=== PATIENT | male | born 1980 | race Caucasian/White ===

== ENCOUNTER 2016-04-22 07:44 | Observation (INO) ==
[2016-04-22] MEDS ORDERED: 0.9 % Sodium Chloride 1,000 ML IVC ONE (07:57)
[2016-04-22] MEDS ORDERED: *HR* HYDROmorphone (PF) 1 MG/ML SYRINGE IVP ONE ×2 (07:57→09:08)
[2016-04-22] MEDS ORDERED: Ondansetron 4 MG/2 ML VIAL IVP ONE (07:57)
--- NOTE | 2016-04-22 08:00 | Emergency Department Note ---
Disposition Clinical Impression: Cholecystitis Disposition: Admitted As Inpatient Condition: Fair Referrals: Ana Garcia, [employer] [Primary Care Provider] - Forms: Work/School Release, ED Satisfaction Letter Time of Disposition: 09:33 Abdominal Pain HPI - General Chief Complaint: ED Abdominal Pain Stated Complaint: RUQ pain Gallbladder issues Time Seen by Provider: 04/22/16 07:57 Source: patient Mode of arrival: ambulatory Limitations: no limitations Nursing Notes Reviewed: Yes Vital Signs Reviewed: Yes - History of Present Illness HPI Narrative: 35-year-old comes in with right upper quadrant pain began about 4 AM. Patient has a known gallstone that was diagnosed 4-5 months ago he's had no surgical follow-up. Patient a hamburger last night about 5:00. He is diaphoretic complaining of right upper quadrant pain on arrival. Pt Subjective Complaint: abdominal pain Onset (ago): hour(s) Consistency: constant Location: RUQ Pain Severity: severe Pain Scale: 10 Quality: aching, sharp Radiation: back Migration to: no migration Improves with: nothing Worsens with: nothing - Related Data Previous Rx's Medication Instructions Recorded Hydrocodone/Acetaminophen [Cobb 1 - 2 each PO Q6H PRN #15 tablet 07/26/15 5-325 Tablet] Ondansetron ODT [Zofran ODT] 4 mg SL Q6HR PRN #15 tab.rapdis 07/26/15 Allergies Allergy/AdvReac Type Severity Reaction Status Date / Time No Known Allergies Allergy Verified 07/26/15 03:22 Constitutional: Denies: fever, chills, weakness, weight change Eyes: Denies: eye pain, eye discharge, vision change ENT ED: Denies: ear pain, throat pain, dental pain, hearing loss, epistaxis, congestion, dysphagia Cardiovascular: Denies: chest pain, palpitations, dyspnea on exertion, edema, syncope Respiratory: Denies: cough, dyspnea, wheezes, hemoptysis, stridor Gastrointestinal: Reports: abdominal pain, nausea. Denies: vomiting, diarrhea, constipation, hematemesis, melena, hematochezia Genitourinary: Denies: urgency, dysuria, frequency, hematuria Musculoskeletal: Denies: back pain, neck pain, arthralgia, myalgia Integumentary: Denies: rash, abrasion, lesions Neurological: Denies: headache, weakness, numbness, paresthesias, confusion, abnormal gait, vertigo Psychiatric: Denies: anxiety, depression, suicidal thoughts, homicidal thoughts , auditory hallucinations, visual hallucinations Endocrine: Denies: fatigue Hematological/Lymphatic: Denies: easy bleeding, easy bruising Allergic/Immunologic: Denies: facial swelling, urticaria Abdominal Pain PMH - Past Medical History Medical history: Reports: GERD Male Surgical History: Reports: no surgical history Psychiatric history: Reports: no psych history - Social History Smoking status: Never smoker Alcohol use: Reports: heavy Drug use: Reports: none Physical Exam - General Limitations: no limitations General appearance: alert, in no apparent distress - Head Head exam: atraumatic, normocephalic, normal inspection - Eye Eye exam: Present: normal appearance, PERRL, EOMI - ENT ENT exam: normal exam, normal oropharynx, mucous membranes moist - Neck Neck exam: Present: normal inspection, full ROM, trachea midline - Chest Chest inspection: Present: normal inspection, symmetric chest wall rise - Respiratory Respiratory exam: Present: normal lung sounds bilaterally - Cardiovascular Cardiovascular exam: Present: regular rate, normal rhythm, normal heart sounds - Abdominal Exam Abdominal exam: Present: soft, tenderness. Absent: distention, guarding, rebound, rigidity Abdominal tenderness: Present: RUQ - Extremities Exam Extremities exam: Present: normal inspection, full ROM. Absent: tenderness, pedal edema - Expanded Lower Extremity Exam Neurovascular/Tendon exam: Absent: motor deficit, sensory deficit, tendon deficit Gait: observed and normal - Back Exam Back exam: Present: normal inspection, full ROM. Absent: tenderness - Neurological Exam Neurological exam: Present: alert, oriented X3 - Psychiatric Psychiatric exam: Present: normal affect, normal mood - Skin Skin exam: Present: warm, dry, intact, normal color Course - Consultations Consultation #1: I discussed the case with Dr. Henry, admit. Time: 09:31 Vital Signs Temperature 98.0 F 04/22/16 07:47 Pulse Rate 80 04/22/16 07:47 Respiratory Rate 20 04/22/16 07:47 Blood Pressure 166/95 04/22/16 07:47 O2 Sat by Pulse Oximetry 96 04/22/16 07:47 Temperature 98.0 F 04/22/16 07:47 Pulse Rate 64 04/22/16 09:08 Respiratory Rate 18 04/22/16 09:08 Blood Pressure 166/95 04/22/16 07:47 O2 Sat by Pulse Oximetry 94 L 04/22/16 09:08 Oxygen Delivery Oxygen Delivery Room Air Abdominal Pain - Lab Data Lab results reviewed: Yes I reviewed the patient's lab results. Result diagrams: 04/22/16 08:15 04/22/16 08:15 Lab Results 04/22/16 04/22/16 04/22/16 Range/Units 08:11 08:15 08:15 WBC 12.8 H (4.3-11.1) K/mcL RBC 4.99 (4.19-5.50) M/mcL Hgb 15.6 (12.9-16.9) g/dL Hct 45.2 (37.5-50.1) % MCV 90.6 (83.0-100.0) fL MCH 31.3 (28.0-33.3) pg MCHC 34.5 (31.6-35.5) g/dL RDW 11.9 (11.5-14.5) % Plt Count 219 (140-400) K/mcL MPV 9.4 (9.4-12.4) fL Immature Gran % 0.3 (0-4) % Seg Neutrophils % 73.5 % Lymphocytes % 18.8 % Monocytes % 5.4 % Eosinophils % 1.6 % Basophils % 0.4 % Neutrophils # 9.4 H (1.6-8.9) K/mcL Lymphocytes # 2.4 (0.6-4.6) K/mcL Monocytes # 0.7 (0.0-1.3) K/mcL Eosinophils # 0.2 (0.0-0.6) K/mcL Basophils # 0.1 (0.0-0.2) K/mcL Sodium 141 (136-145) mEq/L Potassium 3.8 (3.5-4.5) mEq/L Chloride 107 (98-109) mEq/L Carbon Dioxide 24 (19-29) mEq/L BUN 13 (8-26) mg/dL Creatinine 1.50 H (0.72-1.25) mg/dL Est GFR ( Amer) > 60 (> 60) Est GFR (Non-Af Amer) 53 L (> 60) BUN/Creatinine Ratio 9 (6-26) Glucose 119 H (70-99) mg/dL Calculated Osmolality 293 (280-300) Calcium 10.0 (8.6-10.8) mg/dL Total Bilirubin 0.4 (0.2-1.2) mg/dL Direct Bilirubin 0.1 (0.0-0.5) mg/dL Indirect Bilirubin 0.3 (0.0-1.2) mg/dL AST 24 (5-34) Units/L ALT 30 (0-55) Units/L Alkaline Phosphatase 116 (38-126) Units/L Troponin I (0-0.03) ng/mL Serum Total Protein 7.3 (6.0-8.3) g/dL Albumin 3.8 (3.5-5.0) g/dL Globulin 3.5 (2.4-3.5) g/dL Albumin/Globulin Ratio 1.1 (1.1-2.2) Amylase 42 (25-125) Units/L Lipase 24 (8-78) Units/L Urine Color Yellow (Yellow) Urine Clarity Clear (Clear) Urine pH 5.5 (5.0-8.0) pH Units Ur Specific [place] 1.027 H (1.010-1.025) Urine Protein Negative (Neg-Trace) mg/dL Urine Glucose (UA) Normal (Normal) mg/dL Urine Ketones Negative (Negative) mg/dL Urine Blood Negative (Negative) Urine Nitrite Negative (Negative) Urine Bilirubin Negative (Negative) Urine Urobilinogen Normal (Normal) mg/dL Ur Leukocyte Esterase Negative (Negative) Ur Culture Indicated? NO (NO) 04/22/16 Range/Units 08:15 WBC (4.3-11.1) K/mcL RBC (4.19-5.50) M/mcL Hgb (12.9-16.9) g/dL Hct (37.5-50.1) % MCV (83.0-100.0) fL MCH (28.0-33.3) pg MCHC (31.6-35.5) g/dL RDW (11.5-14.5) % Plt Count (140-400) K/mcL MPV (9.4-12.4) fL Immature Gran % (0-4) % Seg Neutrophils % % Lymphocytes % % Monocytes % % Eosinophils % % Basophils % % Neutrophils # (1.6-8.9) K/mcL Lymphocytes # (0.6-4.6) K/mcL Monocytes # (0.0-1.3) K/mcL Eosinophils # (0.0-0.6) K/mcL Basophils # (0.0-0.2) K/mcL Sodium (136-145) mEq/L Potassium (3.5-4.5) mEq/L Chloride (98-109) mEq/L Carbon Dioxide (19-29) mEq/L BUN (8-26) mg/dL Creatinine (0.72-1.25) mg/dL Est GFR ( Amer) (> 60) Est GFR (Non-Af Amer) (> 60) BUN/Creatinine Ratio (6-26) Glucose (70-99) mg/dL Calculated Osmolality (280-300) Calcium (8.6-10.8) mg/dL Total Bilirubin (0.2-1.2) mg/dL Direct Bilirubin (0.0-0.5) mg/dL Indirect Bilirubin (0.0-1.2) mg/dL AST (5-34) Units/L ALT (0-55) Units/L Alkaline Phosphatase (38-126) Units/L Troponin I 0.01 (0-0.03) ng/mL Serum Total Protein (6.0-8.3) g/dL Albumin (3.5-5.0) g/dL Globulin (2.4-3.5) g/dL Albumin/Globulin Ratio (1.1-2.2) Amylase (25-125) Units/L Lipase (8-78) Units/L Urine Color (Yellow) Urine Clarity (Clear) Urine pH (5.0-8.0) pH Units Ur Specific [place] (1.010-1.025) Urine Protein (Neg-Trace) mg/dL Urine Glucose (UA) (Normal) mg/dL Urine Ketones (Negative) mg/dL Urine Blood (Negative) Urine Nitrite (Negative) Urine Bilirubin (Negative) Urine Urobilinogen (Normal) mg/dL Ur Leukocyte Esterase (Negative) Ur Culture Indicated? (NO) - Radiology Data Radiology results reviewed: Yes I reviewed the patient's radiology results. Gallbladder Ultrasound 04/22/16 07:58 IMPRESSION: Gallbladder sludge and small gallbladder polyp versus adherent calculus. Mild gallbladder wall thickening is also seen with prominence of the common bile duct. Developing cholecystitis is a consideration the appropriate clinical setting. If warranted, HIDA scan could be performed for further assessment. D/ / Bijan Cordon MD / Bijan Cordon MD Interpreting Provider: Bijan Cordon MD
[2016-04-22 08:20] LABS: Bilirubin,Urine Negative (Negative); Blood,Urine Negative (Negative); Clarity,Urine Clear (Clear); Color,Urine Yellow (Yellow); Glucose,Urine (UA) Normal (Normal); Ketones,Urine Negative (Negative); Leukocyte Esterase,Urine Negative (Negative); Nitrite,Urine Negative (Negative); PH,Urine 5.5 pH Units (5.0-8.0); Protein,Urine Negative (Neg-Trace); Specific Gravity,Urine 1.027 (1.010-1.025); Urobilinogen,Urine Normal (Normal)
[2016-04-22 08:25] LABS: Basophils # 0.1 K/mcL (0.0-0.2); Basophils % 0.4 %; Eosinophils # 0.2 K/mcL (0.0-0.6); Eosinophils % 1.6 %; Hematocrit 45.2 % (37.5-50.1); Hemoglobin 15.6 g/dL (12.9-16.9); Immature Granulocytes % 0.3 % (0-4); Lymphocytes # 2.4 K/mcL (0.6-4.6); Lymphocytes % 18.8 %; Mean Corpuscular HGB Conc 34.5 g/dL (31.6-35.5); Mean Corpuscular Hemoglobin 31.3 pg (28.0-33.3); Mean Corpuscular Volume 90.6 fL (83.0-100.0); Mean Platelet Volume 9.4 fL (9.4-12.4); Monocytes # 0.7 K/mcL (0.0-1.3); Monocytes % 5.4 %; Neutrophils # 9.4 K/mcL (1.6-8.9); Platelet Count 219 K/mcL (140-400); Red Blood Count 4.99 M/mcL (4.19-5.50); Red Cell Distribution Width 11.9 % (11.5-14.5); Segmented Neutrophils % 73.5 %
[2016-04-22 08:36] LABS: Alanine Aminotransferase 30 Units/L (0-55); Albumin 3.8 g/dL (3.5-5.0); Albumin/Globulin Ratio 1.1 (1.1-2.2); Alkaline Phosphatase 116 Units/L (38-126); Amylase 42 Units/L (25-125); Aspartate Amino Transferase 24 Units/L (5-34); BUN/Creatinine Ratio 9 (6-26); Bilirubin,Direct 0.1 mg/dL (0.0-0.5); Bilirubin,Indirect 0.3 mg/dL (0.0-1.2); Bilirubin,Total 0.4 mg/dL (0.2-1.2); Blood Urea Nitrogen 13 mg/dL (8-26); Carbon Dioxide 24 mEq/L (19-29); Chloride 107 mEq/L (98-109); Globulin 3.5 g/dL (2.4-3.5); Glucose 119 mg/dL (70-99); Lipase 24 Units/L (8-78); Osmolality,Calculated 293 (280-300); Potassium 3.8 mEq/L (3.5-4.5); Sodium 141 mEq/L (136-145); Total Protein 7.3 g/dL (6.0-8.3); eGFR For African Americans > 60 (> 60); eGFR For Non-African Americans 53 (> 60)
[2016-04-22] MEDS ORDERED: Piperacillin/Tazobactam 3.375 GM in D5% in Water (Mini-Bag+) 100 ML IVPB ONE (09:34)
--- NOTE | 2016-04-22 10:25 | General Surg History&Physical ---
<Zarina Medina - Last Filed: 04/22/16 11:21> Date of Encounter: 04/22/16 Time of Encounter: 10:21 Assessment and Plan (1) Cholecystitis Current Visit: Yes Status: Acute The assessment and plan as outlined above was discussed with the patient and/or family members who expressed understanding and agreement. All questions were answered. laparascopic cholecystectomy today NPO IVF pain control supportive care (2) DVT prophylaxis Current Visit: Yes Status: Acute heparin 5,000 units subcutaneous BID History of Present Illness Chief complaint: RUQ pain HPI: Mr. Miranda is a 35 year old male with RUQ pain that began last night. The pain is sharp, severe and radiates to his back. He also has pressure in his epigastrium. He had some nausea without emesis. He has had 2 episodes of similar pain, the most recent 5-6 months ago and previously been diagnosed with a gallstone in the ER during an acute attack of pain. Gallbladder ultrasound shows gallbladder sludge and small gallbladder polyp versus adherent calculus. Mild gallbladder wall thickening is also seen with prominence of the common bile duct. Past Med Surg Social Fam HX - Past Medical History Attestation: Yes The following information was validated with the patient. Source: patient Medical history: GERD Psychiatric history: no psych history - Past Surgical History Surgical History: no surgical history - Social History Smoking Status: Never smoker Smokeless Tobacco Status: Yes (one can a day) Alcohol use: heavy (4-5 small cans of beer daily) Drug use: none Occupational status: employed Current living situation: Home Activity Level: Independent ambulation Medications and Allergies Omeprazole [PriLOSEC] 40 mg PO DAILY 04/22/16 [History] Allergies No Known Allergies Allergy (Verified 07/26/15 03:22) Review of Systems All systems PM: A 10-system review of systems was performed and is negative for pertinent findings except as documented above in the HPI. - Constitutional anorexia, no chills, no fatigue, no fever(s), no increased appetite, no malaise - EENT Nose, mouth and throat: no mouth pain, no sore throat - Cardiovascular diaphoresis, no chest pain - Respiratory no cough, no dyspnea - Gastrointestinal bloating, heartburn (chronic), nausea, no change in bowel habits, no constipation, no diarrhea, no vomiting - Genitourinary no dysuria, no urinary frequency - Musculoskeletal no arthralgias, no myalgias General Surgery Exam Initial Vital Signs Temp Pulse Resp BP Pulse Ox 98.0 F 80 20 166/95 96 04/22/16 07:47 04/22/16 07:47 04/22/16 07:47 04/22/16 07:47 04/22/16 07:47 - General physical appearance well developed, well nourished, no distress - Eyes PERRL, normal ocular movement - ENT normal mucosa, atraumatic, normocephalic - Neck trachea midline - Respiratory normal respiratory effort, clear to auscultation - Cardiovascular Cardiovascular exam: Present: RRR - Abdomen Abdomen general surgery: Present: bowel sounds present, soft, tender Abdominal Tenderness: Present: RUQ - Integumentary Integumentary general surgery: Present: warm and dry - Neurologic Present: CN 2-12 grossly intact - Musculoskeletal Present: normal posture - Psychiatric Psychiatric general surgery: Present: A&Ox3, speech is normal, memory intact Results - Labs 04/22/16 08:15 04/22/16 08:15 Abnormal lab results WBC 12.8 K/mcL (4.3-11.1) H 04/22/16 08:15 Neutrophils # 9.4 K/mcL (1.6-8.9) H 04/22/16 08:15 Creatinine 1.50 mg/dL (0.72-1.25) H 04/22/16 08:15 Est GFR (Non-Af Amer) 53 (> 60) L 04/22/16 08:15 Glucose 119 mg/dL (70-99) H 04/22/16 08:15 Ur Specific [place] 1.027 (1.010-1.025) H 04/22/16 08:11 All other labs normal. <ElaineHarley T - Last Filed: 04/22/16 21:31> History of Present Illness HPI: Mr. Miranda is a 35 year old male Review of Systems All systems PM: A 10-system review of systems was performed and is negative for pertinent findings except as documented above in the HPI. General Surgery Exam Initial Vital Signs Temp Pulse Resp BP Pulse Ox 98.0 F 80 20 166/95 96 04/22/16 07:47 04/22/16 07:47 04/22/16 07:47 04/22/16 07:47 04/22/16 07:47 Results - Labs 04/22/16 08:15 04/22/16 08:15 Abnormal lab results WBC 12.8 K/mcL (4.3-11.1) H 04/22/16 08:15 Neutrophils # 9.4 K/mcL (1.6-8.9) H 04/22/16 08:15 Creatinine 1.50 mg/dL (0.72-1.25) H 04/22/16 08:15 Est GFR (Non-Af Amer) 53 (> 60) L 04/22/16 08:15 Glucose 119 mg/dL (70-99) H 04/22/16 08:15 Ur Specific [place] 1.027 (1.010-1.025) H 04/22/16 08:11 All other labs normal. - Attending Attestation I examined this patient and my medical decision-making was reviewed with the STOCK SHAPER/PA/Advanced Practice Nurse/Resident Physician. I agree with the documented findings, disposition and treatment plan as described except to the extent set forth below. Harley Henry MD FACS
[2016-04-22] MEDS ORDERED: Ondansetron 4 MG/2 ML VIAL IVP PRN ×3 (10:33→16:33)
[2016-04-22] MEDS ORDERED: *HR* HYDROmorphone (PF) 1 MG/ML SYRINGE IVP PRN ×3 (10:33→14:27)
--- NOTE | 2016-04-22 10:36 | Anesthesia Evaluation PreOp ---
Date of Encounter: 04/22/16 Time of Encounter: 10:34 - Past History Planned Operation: Lap [place] Cardiac History: Denies any Significant Hx Pulmonary History: Denies Any Significant HX CREDIT AND COLLECTIONS ANALYST History: Denies Any Significant HX Other Medical History: Denies Any Significant HX, GERD (maintained on Omeprazole ) Anesthesia History: Past Anesthesia (No prior GA), MH (NO FamHx of MH) Alcohol Use: heavy (4-5 small cans of beer daily) Drug use: none Medications and Allergies Omeprazole [PriLOSEC] 40 mg PO DAILY 04/22/16 [History] Allergies No Known Allergies Allergy (Verified 07/26/15 03:22) - Meds/Allergy Pre-op Review Medications Reviewed: Yes Allergies Reviewed: Yes Beta Blockers on Current Med List: No Anesthesia Results - Labs 04/22/16 08:15 04/22/16 08:15 Laboratory Tests 04/22/16 04/22/16 08:15 08:15 WBC 12.8 H Hgb 15.6 Hct 45.2 Plt Count 219 Sodium 141 Potassium 3.8 Chloride 107 Carbon Dioxide 24 BUN 13 Creatinine 1.50 H Est GFR ( Amer) > 60 Est GFR (Non-Af Amer) 53 L Laboratory Results Impressions Gallbladder Ultrasound 04/22/16 07:58 IMPRESSION: Gallbladder sludge and small gallbladder polyp versus adherent calculus. Mild gallbladder wall thickening is also seen with prominence of the common bile duct. Developing cholecystitis is a consideration the appropriate clinical setting. If warranted, HIDA scan could be performed for further assessment. D/ / Bijan Cordon MD / Bijan Cordon MD Interpreting Provider: Bijan Cordon MD Anesthesia Exam Short CBC 04/22/16 Range/Units 08:15 WBC 12.8 H (4.3-11.1) K/mcL Hgb 15.6 (12.9-16.9) g/dL Hct 45.2 (37.5-50.1) % Plt Count 219 (140-400) K/mcL Neutrophils # 9.4 H (1.6-8.9) K/mcL BMP 04/22/16 Range/Units 08:15 Sodium 141 (136-145) mEq/L Potassium 3.8 (3.5-4.5) mEq/L Chloride 107 (98-109) mEq/L Carbon Dioxide 24 (19-29) mEq/L BUN 13 (8-26) mg/dL Creatinine 1.50 H (0.72-1.25) mg/dL Glucose 119 H (70-99) mg/dL Calcium 10.0 (8.6-10.8) mg/dL Cardiac Enzymes 04/22/16 Range/Units 08:15 Troponin I 0.01 (0-0.03) ng/mL Liver Function 04/22/16 Range/Units 08:15 Total Bilirubin 0.4 (0.2-1.2) mg/dL Direct Bilirubin 0.1 (0.0-0.5) mg/dL AST 24 (5-34) Units/L ALT 30 (0-55) Units/L Alkaline Phosphatase 116 (38-126) Units/L Albumin 3.8 (3.5-5.0) g/dL Urine 04/22/16 Range/Units 08:11 Urine Color Yellow (Yellow) Urine Clarity Clear (Clear) Urine pH 5.5 (5.0-8.0) pH Units Ur Specific [place] 1.027 H (1.010-1.025) Urine Protein Negative (Neg-Trace) mg/dL Urine Glucose (UA) Normal (Normal) mg/dL Height: 6'5" Weight: 225# BMI = 27 NPO (# of Hours): 0200 Food, 0700 Water Pain Scale: 2 Pain Scale Used: Saskia (Faces) - HEENT Pupil (Motor): Pupils equal, EOMI Mallampati: II Teeth: Normal Oral Opening: Greater than 3 - CREDIT AND COLLECTIONS ANALYST LOC: Oriented CREDIT AND COLLECTIONS ANALYST Motor: Normal RUE, Normal LUE, Normal RLE, Normal LLE, Normal Face CREDIT AND COLLECTIONS ANALYST Sensory: Normal: RUE, LUE, RLE, LLE, Face - Cardiac Rhythm: Regular Murmur: None - Pulmonary Breath Sounds: bilateral Clear Respiratory Effort: Symmetrical Anesthesia Assess/Plan ASA Score: 2, E Modified [place] Scale for Level of Consciousness: Cooperative, oriented, and tranquil Anesthetic Plan: General Monitoring Plan: Standard Monitors Recovery Plan: PACU Anes Supervising Prov Stmt: Pt seen/evaluated, R&B Discussed, questions answered and consent obtained. Kyle Bradford MD
[2016-04-22] MEDS ORDERED: 0.9 % Sodium Chloride 1,000 ML IVC SCH (10:45)
[2016-04-22] MEDS ORDERED: cloNIDine HCl 0.1 MG TABLET ONE (13:41)
[2016-04-22] MEDS ORDERED: *HR* Promethazine 25 MG/ML VIAL IVP PRN (14:27)
[2016-04-22] MEDS ORDERED: *HR* Midazolam HCl 2 MG/2 ML VIAL ONE (14:48)
[2016-04-22] MEDS ORDERED: *HR* Rocuronium Bromide 50 MG/5 ML VIAL ONE (14:48)
[2016-04-22] MEDS ORDERED: Lidocaine -MPF 2% 2 ML VIAL ONE (14:48)
[2016-04-22] MEDS ORDERED: Dexamethasone 4 MG/ML VIAL ONE (14:48)
[2016-04-22] MEDS ORDERED: CefOXitin 2,000 MG VIAL IVPB ONE (14:48)
[2016-04-22] MEDS ORDERED: *HR* Succinylcholine 200 MG/10 ML VIAL IVP ONE (14:48)
[2016-04-22] MEDS ORDERED: Ondansetron 4 MG/2 ML VIAL ONE (14:48)
[2016-04-22] MEDS ORDERED: *HR* Propofol 200 MG/20 ML VIAL IVP ONE (14:48)
[2016-04-22] MEDS ORDERED: *HR* FentaNYL (PF) 100 MCG/2 ML VIAL ONE (14:48)
[2016-04-22] MEDS ORDERED: Neostigmine Methylsulfate 3 MG/3 ML SYRINGE ONE (14:48)
[2016-04-22] MEDS ORDERED: Ketorolac 30 MG/ML VIAL ONE (14:58)
[2016-04-22] MEDS ORDERED: *HR* HYDROmorphone 2 MG/ML SYRINGE ONE (14:59)
--- NOTE | 2016-04-22 15:00 | Operative Note ---
Date of procedure: 04/22/16 Pre-op diagnosis: Acute cholecystitis and cholelithiasis Post-op diagnosis: other Procedure: Laparoscopic cholecystectomy, cholangiogram Anesthesia: CARLITA Surgeon: Harley Henry Estimated blood loss (cc): 25 Specimen: Gallbladder and contents Condition: stable Disposition: PACU Procedure in Detail: Laparoscopic cholecystectomy and intraoperative cholangiogram Operative procedure after informed consent and appropriate patient identification timeout the patient's take major operating suite and placed supine position given adequate general endotracheal anesthesia the abdomen is prepped and draped in sterile fashion utilizing ChloraPrep standard draping techniques timeout was taken patient is identified. I made a vertical midline incision below the umbilicus dissected down to level of fascia there are 2 traction stitches placed in the abdominal cavity was entered visually. A Tan trocar was placed in the abdomen and the abdomen was insufflated to 15 mmHg pressure CO2 the gallbladder was visualized. A placement 11 port in the subxiphoid area and 2 5 mm ports in the subcostal area. The gallbladder was grasped and elevated. A variety of blunt and sharp dissection techniques were used to isolate the cystic duct and cystic artery. The cystic artery was controlled with 2 surgical clips proximally and one distally and it was divided I placed a surgical clip on the neck the gallbladder and obtained an intraoperative cholangiogram using 10 mL of Isovue. Intraoperative cholangiogram was normal. The cholangiocatheter was removed and the cystic duct was controlled with 2 surgical clips proximally and was divided the gallbladder was removed from the gallbladder fossae using electrocautery. The gallbladder was removed through the #11 port site. I replaced the #11 port and irrigated with copious amounts of antibiotic containing solution. There is no evidence of bleeding or bile leak. All trochars were removed. Fascia was closed with 0 Vicryl skin with 2-0 and 4-0 Vicryl he tolerated the procedure well and was transferred to recovery in stable condition
--- NOTE | 2016-04-22 16:18 | Anesthesia Evaluation Post Op ---
Date of Encounter: 04/22/16 Time of Encounter: 16:10 - Vital Signs Vital Signs: Vital Signs/O2 Sat, Most Current Temp Pulse Resp BP Pulse Ox 98.0 F 56 16 126/89 95 04/22/16 16:07 04/22/16 16:14 04/22/16 16:14 04/22/16 16:14 04/22/16 16:14 - Lungs Lungs: Clear Ascult./Percussion - Airway Airway: Non-obstructed - Cardiovascular Regular Rate - Mental Status Mental Status: Asleep with brisk response to light stimulation - Pain Pain Scale: 4 Pain Scale used: Numeric (1 - 10) - Nausea Vomiting Nausea Vomiting: Not Present - Hydration Hydration: Ice chips, Has not voided - Discharge PostOp Status: Transfer Patient to floor
[2016-04-22] MEDS: 0.9 % Sodium Chloride 1,000 ML IVC SCH (16:59)
[2016-04-22] MEDS: *HR* HYDROmorphone (PF) 1 MG/ML SYRINGE IVP PRN ×2 (16:59→23:20)
[2016-04-22] MEDS: *HR* OxyCODONE/APAP 5/325 TABLET PO PRN (18:54)
[2016-04-22] MEDS: cefOXitin 2,000 MG in D5% in Water (Mini-Bag+) 100 ML IVPB SCH (23:15)
[2016-04-23] MEDS: 0.9 % Sodium Chloride 1,000 ML IVC SCH (05:46)
[2016-04-23] MEDS: cefOXitin 2,000 MG in D5% in Water (Mini-Bag+) 100 ML IVPB SCH (05:47)
[2016-04-23] MEDS: *HR* OxyCODONE/APAP 5/325 TABLET PO PRN ×3 (05:48→15:15)
[2016-04-23 06:03] LABS: Basophils % 0.2 %; Hematocrit 40.4 % (37.5-50.1); Immature Granulocytes % 0.5 % (0-4); Lymphocytes # 1.1 K/mcL (0.6-4.6); Lymphocytes % 8.6 %; Mean Corpuscular HGB Conc 34.2 g/dL (31.6-35.5); Mean Corpuscular Hemoglobin 31.3 pg (28.0-33.3); Mean Corpuscular Volume 91.6 fL (83.0-100.0); Mean Platelet Volume 9.7 fL (9.4-12.4); Monocytes # 0.7 K/mcL (0.0-1.3); Monocytes % 5.2 %; Neutrophils # 11.1 K/mcL (1.6-8.9); Platelet Count 194 K/mcL (140-400); Red Blood Count 4.41 M/mcL (4.19-5.50); Red Cell Distribution Width 11.7 % (11.5-14.5); Segmented Neutrophils % 85.5 %
[2016-04-23 06:09] LABS: Hemoglobin 13.8 g/dL (12.9-16.9)
[2016-04-23 06:17] LABS: Alanine Aminotransferase 71 Units/L (0-55); Albumin 3.3 g/dL (3.5-5.0); Albumin/Globulin Ratio 1.1 (1.1-2.2); Alkaline Phosphatase 85 Units/L (38-126); Aspartate Amino Transferase 53 Units/L (5-34); BUN/Creatinine Ratio 11 (6-26); Bilirubin,Total 0.9 mg/dL (0.2-1.2); Blood Urea Nitrogen 13 mg/dL (8-26); Calcium 8.5 mg/dL (8.6-10.8); Carbon Dioxide 26 mEq/L (19-29); Chloride 105 mEq/L (98-109); Globulin 3.1 g/dL (2.4-3.5); Glucose 104 mg/dL (70-99); Osmolality,Calculated 286 (280-300); Sodium 138 mEq/L (136-145); Total Protein 6.4 g/dL (6.0-8.3); eGFR For African Americans > 60 (> 60); eGFR For Non-African Americans > 60 (> 60)
[2016-04-23] MEDS ORDERED: Pantoprazole 40 MG VIAL IVP SCH ×2 (09:00)
--- NOTE | 2016-04-23 09:25 | Discharge Summary ---
<Zarina Medina - Last Filed: 04/23/16 18:49> Date of Encounter: 04/23/16 Time of Encounter: 09:21 - Discharge Diagnosis (1) Cholecystitis Priority: Primary Status: Acute (2) DVT prophylaxis Priority: Secondary Status: Acute - Discharge Medications Prescriptions: Oxycodone HCl/Acetaminophen [Percocet 5-325 mg Tablet] 1 each PO Q6HR PRN #39 tablet PRN Reason: Pain Docusate [Colace] 100 mg PO BID #28 capsule Home Medications: Omeprazole [PriLOSEC] 40 mg PO DAILY 04/22/16 [History] Docusate [Colace] 100 mg PO BID #28 capsule 04/23/16 [Rx] Oxycodone HCl/Acetaminophen [Percocet 5-325 mg Tablet] 1 each PO Q6HR PRN #39 tablet 04/23/16 [Rx] Allergies/Adverse Reactions: Allergies No Known Allergies Allergy (Verified 07/26/15 03:22) General Surgery Exam Initial Vital Signs Temp Pulse Resp BP Pulse Ox 98.0 F 80 20 166/95 96 04/22/16 07:47 04/22/16 07:47 04/22/16 07:47 04/22/16 07:47 04/22/16 07:47 - General physical appearance well developed, well nourished, no distress - Eyes PERRL, normal ocular movement - ENT normal mucosa, atraumatic, normocephalic - Neck trachea midline - Respiratory normal respiratory effort, clear to auscultation - Cardiovascular Cardiovascular exam: Present: RRR - Abdomen Abdomen general surgery: Present: bowel sounds present, soft, tender Abdominal Tenderness: Present: RUQ - Incision Incision: Present: clean and dry, intact - Integumentary Integumentary general surgery: Present: warm and dry - Neurologic Present: CN 2-12 grossly intact - Psychiatric Psychiatric general surgery: Present: A&Ox3, speech is normal, memory intact Date of admission: 04/22/16 09:51 Primary care physician: Ana Garcia CNP Discharging clinician: Zarina Medina Anticipated date of discharge: 04/23/16 - Patient Status Disposition: Home, Self-Care Condition: Good Functional capacity at discharge: independent ambulation Overall status at discharge: patient is progressing back to baseline - Discharge Instructions Follow Up With: Harley Henry MD [Partnered Physician] - 04/29/16 10:10 am Forms: Work/School Release Additional Instructions: Follow-up with Dr. Henry in the office in 1 week (ThursdayApril 29). Do not return to work until your follow-up with Dr. Henry. - Diet and Activity Activity: return to work once cleared by your PCP/specialist Diet: advance to your usual diet - Hospital Course Hospital course: Mr. Miranda is a 35 year old male who was admitted for laparoscopic cholecystectomy due to acute cholecystitis. He is postop day 1. - Time Spent with Patient Total time spent providing and/or coordinating discharge services: Labs on day of discharge: Labs from last 24 hours 04/23/16 04/23/16 05:17 05:17 WBC 13.0 H RBC 4.41 Hgb 13.8 D Hct 40.4 MCV 91.6 MCH 31.3 MCHC 34.2 RDW 11.7 Plt Count 194 MPV 9.7 Immature Gran % 0.5 Seg Neutrophils % 85.5 Lymphocytes % 8.6 Monocytes % 5.2 Eosinophils % 0.0 Basophils % 0.2 Neutrophils # 11.1 H Lymphocytes # 1.1 Monocytes # 0.7 Eosinophils # 0.0 Basophils # 0.0 Sodium 138 Potassium 4.0 Chloride 105 Carbon Dioxide 26 BUN 13 Creatinine 1.22 Est GFR ( Amer) > 60 Est GFR (Non-Af Amer) > 60 BUN/Creatinine Ratio 11 Glucose 104 H Calculated Osmolality 286 Calcium 8.5 L Total Bilirubin 0.9 D AST 53 H ALT 71 H Alkaline Phosphatase 85 Serum Total Protein 6.4 Albumin 3.3 L Globulin 3.1 Albumin/Globulin Ratio 1.1 - Impressions ITS Impressions Cholangiogram,Operative 04/22/16 13:00 IMPRESSION: Intraoperative cholangiogram status post cholecystectomy without evidence of obstruction or leak. D/ / Deniz Wilkinson MD / Deniz Wilkinson MD Interpreting Provider: Deniz Wilkinson MD <Harley Henry - Last Filed: 04/24/16 07:49> General Surgery Exam Initial Vital Signs Temp Pulse Resp BP Pulse Ox 98.0 F 80 20 166/95 96 04/22/16 07:47 04/22/16 07:47 04/22/16 07:47 04/22/16 07:47 04/22/16 07:47 Date of admission: 04/22/16 09:51 Primary care physician: Ana Garcia CNP - Hospital Course Hospital course: Mr. Miranda is a 35 year old male - Time Spent with Patient Total time spent providing and/or coordinating discharge services: - Impressions ITS Impressions Cholangiogram,Operative 04/22/16 13:00 IMPRESSION: Intraoperative cholangiogram status post cholecystectomy without evidence of obstruction or leak. D/ / Deniz Wilkinson MD / Deniz Wilkinson MD Interpreting Provider: Deniz Wilkinson MD - Attending Attestation I examined this patient and my medical decision-making was reviewed with the ACCESS ANALYST/PA/Advanced Practice Nurse/Resident Physician. I agree with the documented findings, disposition and treatment plan as described except to the extent set forth below. Harley Henry MD
[2016-04-23] MEDS: *HR* Heparin 5,000 UNIT/ML VIAL SQ SCH ×2 (09:34→18:23)
[2016-04-23] MEDS ORDERED: *HR* Heparin 5,000 UNIT/ML VIAL SQ SCH (10:42)
[2016-04-23 16:20] VITALS: BP 120/78
== END 2016-04-23 19:30 | disposition home or self-care (01) ==
LOC: EMEROO 07:44 → 3ANU 07:44
PROVIDERS: ADMIT Surgery; ATTEND Surgery

== ENCOUNTER 2020-01-29 22:13 | Observation (INO) ==
[2020-01-29 22:41] LABS: Basophils # 0.1 K/mcL (0.0-0.2); Basophils % 0.6 %; Eosinophils # 0.1 K/mcL (0.0-0.6); Eosinophils % 0.9 %; Hematocrit 52.3 % (37.5-50.1); Hemoglobin 18.3 g/dL (12.9-16.9); Immature Granulocytes % 0.4 % (0-4); Lymphocytes # 3.5 K/mcL (0.6-4.6); Lymphocytes % 32.4 %; Mean Corpuscular Hemoglobin 33.1 pg (28.0-33.3); Mean Corpuscular Volume 94.6 fL (83.0-100.0); Mean Platelet Volume 8.9 fL (9.4-12.4); Monocytes # 0.5 K/mcL (0.0-1.3); Monocytes % 4.3 %; Neutrophils # 6.7 K/mcL (1.6-8.9); Platelet Count 270 K/mcL (140-400); Red Blood Count 5.53 M/mcL (4.19-5.50); Red Cell Distribution Width 11.8 % (11.5-14.5); Segmented Neutrophils % 61.4 %; White Blood Count 10.9 K/mcL (4.3-11.1)
[2020-01-29 22:42] LABS: Bilirubin,Urine Negative (Negative); Blood,Urine Negative (Negative); Clarity,Urine Clear (Clear); Color,Urine Colorless (Yellow); Glucose,Urine (UA) Normal (Normal); Ketones,Urine Negative (Negative); Leukocyte Esterase,Urine Negative (Negative); Nitrite,Urine Negative (Negative); PH,Urine 5.5 pH Units (5.0-8.0); Protein,Urine Negative (Neg-Trace); Specific Gravity,Urine 1.009 (1.010-1.025); Urobilinogen,Urine Normal (Normal)
[2020-01-29 22:52] LABS: Amphetamine Screen,Urine Negative ng/mL (Cutoff=1000); Barbiturate Screen,Urine Negative ng/mL (Cutoff=200); Benzodiazepines Screen,Urine Negative ng/mL (Cutoff=200); Cannabinoid Screen,Urine Negative ng/mL (Cutoff = 50); Cocaine Screen,Urine Negative ng/mL (Cutoff= 300); Opiate Screen,Urine Negative ng/mL (Cutoff=300); Phencyclidine Screen,Urine Negative ng/mL (Cutoff=25)
[2020-01-29 23:02] LABS: Acetaminophen < 10 mcg/mL (10-20); BUN/Creatinine Ratio 8 (6-26); Blood Urea Nitrogen 9 mg/dL (6-20); Calcium 8.8 mg/dL (8.6-10.3); Carbon Dioxide 22 mEq/L (23-29); Chloride 101 mEq/L (98-107); Ethanol 242 mg/dL (Less than 10); Glucose 191 mg/dL (70-105); Osmolality,Calculated 290 (280-300); Potassium 3.8 mEq/L (3.5-5.1); Salicylate < 2.5 mg/dL (15.0-30.0); Sodium 138 mEq/L (136-145); eGFR For African Americans > 60 (> 60); eGFR For Non-African Americans > 60 (> 60)
[2020-01-30] MEDS ORDERED: Acetaminophen 325 MG TABLET PO PRN (06:45)
[2020-01-30] MEDS ORDERED: hydrOXYzine pamoate 25 MG CAPSULE PO PRN (06:45)
[2020-01-30] MEDS ORDERED: MOM Conc 10 ML UD.LIQ PO PRN (06:45)
[2020-01-30] MEDS ORDERED: Haloperidol Lactate 5 MG/ML VIAL IM PRN (06:45)
[2020-01-30] MEDS ORDERED: *HR* LORazepam 1 MG TABLET PO PRN (06:45)
[2020-01-30] MEDS ORDERED: Mag Hydrox/Al Hydrox/Simeth 30 ML UDC PO PRN (06:45)
[2020-01-30] MEDS ORDERED: traZODone 50 MG TABLET PO PRN (06:45)
[2020-01-30] MEDS ORDERED: *HR* LORazepam 2 MG/ML VIAL IM PRN (06:45)
[2020-01-30] MEDS ORDERED: haloperidoL 5 MG TABLET PO PRN (06:45)
[2020-01-30 09:07] VITALS: BP 133/87
== END 2020-01-30 09:20 | disposition home or self-care (01) ==
LOC: EMEROOARM 22:13 → 1ANU 01-30 06:41 → INTOOBSV 01-30 06:41 → 1ANU 01-30 08:10
PROVIDERS: ADMIT Psychiatry & Neurology Psychiatry; ATTEND Psychiatry & Neurology Psychiatry